=== PATIENT | male | born 1990 ===

== ENCOUNTER 2018-03-15 10:37 | Emergency (ER) | payer OTHER ==
[2018-03-15 10:47] VITALS: PULSE 78; RESP 19; O2SAT 98
--- NOTE | 2018-03-15 12:04 | RAD ---
PROCEDURE: Right Knee Radiographs. HISTORY: knee pain COMPARISON: None. FINDINGS: BONES: No acute fracture. JOINTS: Unremarkable. JOINT EFFUSION: None. OTHER FINDINGS: None. IMPRESSION: No demonstrated fracture or dislocation.
--- NOTE | 2018-03-15 13:50 | ED PDOC ---
Lower Extremity Pain/Injury Chief Complaint (Provider): Right Knee pain History Per: Patient History/Exam Limitations: no limitations Onset/Duration Of Symptoms: Days, Intermittent Episodes Current Symptoms Are (Timing): Gone Now Additional Complaint(s): 27 y/o un-domiciled male with no significant PMHx presents complaining of Intermittent right knee pain for 1 month. Patient denies any h/o knee trauma or falls. Patient states he gets the right knee pain after walking long distances, radiating to his right ankle, improves with rest, has taken Advil OTC, but does not help, and associated with weakness in right knee. Denies swelling, redness, warmth sensation of overlying skin. Denies tingling, numbness in lower extremities. Also reports a pruritic rash involving his upper and lower extremities for 1 week, worse at night. Denies fevers, chills, Cp, SOB, N/V, other joint involvement, or other complains. PMD: None <Shira Richardson - Last Filed: 03/15/18 14:03> <Guillermo Clement Y - Last Filed: 03/17/18 06:37> Time Seen by Provider: 03/15/18 11:02 Chief Complaint (Nursing): Lower Extremity Problem/Injury Past Medical History Vital Signs: Last Vital Signs Temp 98.4 F 03/15/18 10:46 Pulse 78 03/15/18 10:46 Resp 19 03/15/18 10:46 BP 100/53 L 03/15/18 10:46 Pulse Ox 98 03/15/18 10:46 - Medical History PMH: No Chronic Diseases - Surgical History Surgical History: No Surg Hx - Family History Family History: States: Unknown Family Hx - Social History Current smoker - smoking cessation education provided: No Ex-Smoker (has not smoked in the last 12 months): No Alcohol: None Drugs: Denies <Shira Richardson - Last Filed: 03/15/18 14:03> Vital Signs: Last Vital Signs Temp 97 F L 03/15/18 14:07 Pulse 78 03/15/18 14:07 Resp 19 03/15/18 10:46 BP 110/78 03/15/18 14:07 Pulse Ox 98 03/15/18 14:17 <Guillermo Clement Y - Last Filed: 03/17/18 06:37> - Home Medications Home Medications: Ambulatory Orders Medication Instructions Recorded Permethrin 5% [Permethrin 5% Cream] 1 appful TP ONCE #1 tube 03/15/18 - Allergies Allergies/Adverse Reactions: Allergies Allergy/AdvReac Type Severity Reaction Status Date / Time No Known Allergies Allergy Verified 03/15/18 10:52 Wells Criteria for PE - Wells Criteria for Pulmonary Embolism Clinical Signs and Symptoms of DVT: No P.E is #1 Diagnosis, or Equally Likely: No Heart Rate >100: No Immobilization at least 3 days;Surgery previous 4 weeks: No Previous, objectively diagnosed PE or DVT: No Hemoptysis: No Malignancy w/treatment within 6 months, or palliative: No Total Score: 0 <Shira Richardson - Last Filed: 03/15/18 14:03> Review of Systems ROS Statement: Except As Marked, All Systems Reviewed And Found Negative (as per HPI) <Shira Richardson - Last Filed: 03/15/18 14:03> Physical Exam - Reviewed Nursing Documentation Reviewed: Yes Vital Signs Reviewed: Yes - Physical Exam Appears: Positive for: Non-toxic, No Acute Distress Head Exam: Positive for: ATRAUMATIC, NORMOCEPHALIC Skin: Positive for: Normal Color, Warm, Dry, Rash (crusted skin rash noted over upper/lower extremites, associated with scratch powell) Eye Exam: Positive for: EOMI, PERRL Neck: Positive for: Normal, Supple Cardiovascular/Chest: Positive for: Regular Rate, Rhythm. Negative for: Chest Non Tender, Edema, Gallop, Bradycardia, Tachycardia Respiratory: Positive for: Normal Breath Sounds. Negative for: Decreased Breath Sounds, Accessory Muscle Use, Crackles, Rales, Rhonchi, Stridor, Wheezing , Respiratory Distress Gastrointestinal/Abdominal: Positive for: Bowel Sounds, Soft. Negative for: Tenderness, Distended, Guarding, Rebound Extremity: Positive for: Normal ROM, Capillary Refill (<2), Other (MIld tenderness to palpation lateral to patellar tendon.No swelling, erythema, warm of overlying skin. ). Negative for: Pedal Edema, Calf Tenderness Neurologic/Psych: Positive for: Alert, Oriented <Shira Richardson - Last Filed: 03/15/18 14:03> - ECG O2 Sat by Pulse Oximetry: 98 <Shira Richardson - Last Filed: 03/15/18 14:03> Medical Decision Making Medical Decision Making: Right knee pain -chronic -no evidence of swelling, erythema, warmth -Right knee x rays -case discussed with Dr. Clement Pruritic rash -resembling scabies vs bed bugs -Permethrin topical Re-evaluation -X ray negative for fracture or dislocation -patient is stable for discharge with recommended f/u as outpatient -can take tylenol or NSAIDs OTC for pain control -[facility] assistance consultation case discussed with Dr. Clement <Shira Richardson - Last Filed: 03/15/18 14:03> Disposition - Patient ED Disposition Is Patient to be Admitted: No Discussed With : Guillermo Clement - Disposition Disposition Time: 13:30 <Shira Richardson - Last Filed: 03/15/18 14:03> <Guillermo Clement - Last Filed: 03/17/18 06:37> - Clinical Impression Clinical Impression: Knee pain, Scabies - Disposition Referrals: [facility] [Outside] [facility]ly [facility] [Outside] Condition: IMPROVED Additional Instructions: follow up with the clinic return to the ED with any worsening or concerning symptoms Prescriptions: Permethrin 5% [Permethrin 5% Cream] 1 appful TP ONCE #1 tube Instructions: Scabies (DC), Knee Pain (DC) Forms: [facility] (Palestinian) Print Language: NIGERIEN
[2018-03-15 14:07] VITALS: BP 110/78; TEMP 97
== END 2018-03-15 14:12 | disposition home or self-care (01) ==
LOC: H.ER 10:37
DX: M25.561 Pain in right knee (principal); B86 Scabies